=== PATIENT | male | born 1990 | race African-American/Black ===

== ENCOUNTER 2019-05-11 18:55 | Emergency (ER) | payer SELFPAY ==
[~2019-05-11] VITALS: Ht 167.6 cm; Wt 65.9 kg
[2019-05-11 19:05] VITALS: Ht 167.6 cm; Wt 65.9 kg
[2019-05-11] MEDS ORDERED: KEFLEX500 MG PO (19:24)
[2019-05-11] MEDS ORDERED: HYDROCODON-ACE1 EAC2 PO (19:24)
[2019-05-11 23:05] VITALS: BP 122/78
== END 2019-05-11 23:00 | disposition home or self-care (01) ==
LOC: D.ER 18:55
DX: S82.101B Unspecified fracture of upper end of right tibia, initial encounter for open fracture type I or II (principal); W34.00XA Accidental discharge from unspecified firearms or gun, initial encounter; Y93.9 Activity, unspecified; Y92.9 Unspecified place or not applicable